=== PATIENT | female | born 1970 ===

== ENCOUNTER 2017-03-23 21:45 | Observation (INO) | payer SELFPAY ==
[2017-03-23 21:48] VITALS: BP 102/59; PULSE 71; RESP 19; TEMP 98.1; O2SAT 100
[2017-03-23 22:24] LABS: BASO # 0.1 K/uL (0.0-0.2); BASO % 0.6 % (0.0-2.0); EOS # 0.3 K/uL (0.0-0.7); EOS % 2.6 % (0.0-4.0); HEMOGLOBIN 13.7 g/dL (12.0-16.0); MEAN CELL VOLUME 85.5 fl (81.0-99.0); MEAN CORPUSCULAR HEMOGLOBIN 28.1 pg (27.0-31.0); MEAN CORPUSCULAR HGB CONC 32.9 g/dL (33.0-37.0); MEAN PLATELET VOLUME 9.2 fl (7.2-11.7); MONO # 0.6 K/uL (0.0-0.8); MONO % 4.5 % (0.0-10.0); NEUT # 7.9 K/uL (1.8-7.0); NEUT % 61.3 % (50.0-75.0); RBC 4.86 Mil/uL (3.80-5.20); RED CELL DISTRIBUTION WIDTH 14.5 % (11.5-14.5); WHITE BLOOD COUNT 12.8 K/uL (4.8-10.8)
[2017-03-23 23:38] LABS: ALB/GLOB RATIO 1.1 (1.0-2.1); ALBUMIN 4.2 g/dL (3.5-5.0); ALT/SGPT 27 U/L (9-52); AST/SGOT 23 U/L (14-36); BLOOD UREA NITROGEN 11 mg/dl (7-17); CALCIUM 9.1 mg/dL (8.4-10.2); GFR AFRICAN-AMERICAN > 60; GFR NON-AFRICAN AMERICAN > 60
--- NOTE | 2017-03-23 23:45 | ED PDOC ---
HPI: Psych/Substance Abuse Time Seen by Provider: 03/23/17 21:54 Chief Complaint (Nursing): Alcohol Ingestion Chief Complaint (Provider): Alcohol intoxication ED Caveat: Intoxicated History Per: EMS History/Exam Limitations: intoxication Additional Complaint(s): The patient is a 46yo female, brought in by EMS for evaluation s/p discovering the patient publicly intoxicated. Patient combative and agitated upon arrival. Due to the patient's intoxicated state, a full HPI is unavailable. Past Medical History Reviewed: Historical Data, Nursing Documentation, Vital Signs Vital Signs: Last Vital Signs Temp 98.1 F 03/23/17 21:46 Pulse 71 03/23/17 21:46 Resp 19 03/23/17 21:46 BP 102/59 L 03/23/17 21:46 Pulse Ox 100 03/23/17 21:46 - Medical History PMH: No Chronic Diseases - Surgical History Surgical History: No Surg Hx - Family History Family History: States: No Known Family Hx - Allergies Allergies/Adverse Reactions: Allergies Allergy/AdvReac Type Severity Reaction Status Date / Time Unobtainable Allergy Verified 03/23/17 21:48 Review of Systems Review Of Systems: ROS cannot be obtained secondary to pt's inabilty to answer questions. Physical Exam - Reviewed Nursing Documentation Reviewed: Yes Vital Signs Reviewed: Yes - Physical Exam Appears: Positive for: Non-toxic, Uncomfortable (agitated and combative) Head Exam: Positive for: ATRAUMATIC, NORMAL INSPECTION, NORMOCEPHALIC Skin: Positive for: Normal Color Eye Exam: Positive for: EOMI, PERRL Neck: Positive for: Normal Cardiovascular/Chest: Positive for: Regular Rate, Rhythm Respiratory: Negative for: Respiratory Distress Neurologic/Psych: Positive for: Alert, Oriented, Mood/Affect (combative and agitated) - Laboratory Results Result Diagrams: 03/23/17 22:21 03/23/17 22:21 - ECG O2 Sat by Pulse Oximetry: 100 (RA) Pulse Ox Interpretation: Normal Medical Decision Making Medical Decision Making: Time: 2204 Impression: ETOH intoxication and substance abuse Plan: -- Patient is agitated and combative so haldol and ativan was given -- Labs -- ED observation Reassess Scribe Attestation: Documented by Sarah Spain acting as a scribe for Lobo Oliveira MD. Provider Attestation: All medical record entries made by the Jamelibpoppy were at my direction and personally dictated by me. I have reviewed the chart and agree that the record accurately reflects my personal performance of the history, physical exam, medical decision making, and the department course for this patient. I have also personally directed, reviewed, and agree with the discharge instructions and disposition. ED OBSERVATION Discharge: Yes Date of observation admission: 03/23/17 Time of observation admission: 22:55 - Observation admission statement Patient is being placed in observation because:: Patient acutely intoxicated - Goals of Observation Goals of observation are:: Awaiting clinical sobriety - Progress Note Progress Note: 03/24/17 00:58 Patient resting in room, vitals stable. 03/24/17 02:56 Resting in room, vitals stable. 03/24/17 04:58 Patient resting in room, vitals stable. 03/24/17 06:20 Patient awake, alert and oriented x3 with steady gait. Stable for discharge home. Disposition - Clinical Impression Clinical Impression: Alcohol abuse - Patient ED Disposition Is Patient to be Admitted: No - Disposition Disposition: Routine/Home Disposition Time: 22:55 Condition: GOOD
[2017-03-24 01:42] LABS: SALICYLATE < 1.0 mg/dl
[2017-03-24 01:45] LABS: SQUAMOUS EPITHIAL 6 /hpf (0-5); URINE BACTERIA RARE (<OCC); URINE BILIRUBIN NEGATIVE (NEGATIVE); URINE BLOOD NEGATIVE (NEGATIVE); URINE CLARITY SLIGHTY-CLOUDY (Clear); URINE COLOR YELLOW (YELLOW); URINE GLUCOSE (UA) NEG (Normal); URINE LEUKOCYTE ESTERASE NEG Leu/uL (Negative); URINE NITRATE NEGATIVE (NEGATIVE); URINE PROTEIN NEGATIVE (NEGATIVE); URINE UROBILINOGEN 0.2-1.0 mg/dL (0.2-1.0)
[2017-03-24 01:45] LABS: ACETAMINOPHEN < 10.0 ug/ml (10.0-30.0)
[2017-03-24 01:53] LABS: BARBITURATES, UR NEGATIVE (NEGATIVE); BENZODIAZEPINES, UR NEGATIVE (NEGATIVE); OPIATES, UR NEGATIVE (NEGATIVE); PHENCYCLIDINE, UR NEGATIVE (NEGATIVE)
--- NOTE | 2017-03-24 12:53 | CARD ---
APPROVED REPORT EKG Measurement Heart [id number] <Conclusion> Normal sinus rhythm Normal ECG
== END 2017-03-24 05:49 ==
LOC: H.ER 21:45 → H.EROBSV 22:55
PROVIDERS: ADMIT Emergency Medicine; ATTEND Emergency Medicine
DX: F10.129 Alcohol abuse with intoxication, unspecified (principal); Y90.7 Blood alcohol level of 200-239 mg/100 ml; R45.1 Restlessness and agitation
CPT/HCPCS: 80053; 81003; 82550; 85025; 93005; 96372; 99283; G0378; G0480; J1630; J2060; J2405